=== PATIENT | male | born 1930 | race Caucasian/White ===

== ENCOUNTER → 2017-01-16 | Emergency (ER) | payer OTHER ==
[2017-01-16 06:28] VITALS: TEMP 97.9
--- NOTE | 2017-01-16 06:42 | CPEKG ---
Heart Rate: 82 RR Interval: 732 P-R Interval: 228 QRSD Interval: 114 QT Interval: 436 QTC Interval: 510 P Castella: 43 QRS Castella: -34 T Wave Castella: 97 EKG Severity - ABNORMAL ECG - EKG Impression: SINUS RHYTHM EKG Impression: ATRIAL PREMATURE COMPLEX EKG Impression: SINUS PAUSE/ARREST WITH ATRIAL ESCAPE EKG Impression: FIRST DEGREE AV BLOCK EKG Impression: PROBABLE LEFT ATRIAL ABNORMALITY EKG Impression: LVH WITH IVCD AND SECONDARY REPOL ABNRM Electronically Signed By: Margie Huerta 16-Jan-2017 07:23:47
[2017-01-16 07:04] LABS: % IMMATURE GRANULYOCYTES 0.8 % (0.0-1.1); ABSOLUTE IMMATURE GRANULOCYTES 0.07 10^3/uL (0.00-0.10); ADD DIFF? NO; ADD MORPH? NO; ADD SCAN? NO; ATYPICAL LYMPHOCYTE FLAG 0 (0-99); FRAGMENT RBC FLAG 0 (0-99); HEMATOCRIT 43.8 % (40.0-51.0); HEMOGLOBIN 14.8 g/dL (13.7-17.5); LEFT SHIFT FLG 0 (0-99); LIPEMIA HEMOLYSIS FLAG 90 (0-99); MEAN CELL HEMOGLOBIN 29.5 pg (27.9-34.1); MEAN CELL HEMOGLOBIN CONCENTR. 33.8 g/dL (32.4-36.7); MEAN CELL VOLUME 87.3 fL (81.5-99.8); MEAN PLATELET VOLUME 10.6 fL (8.7-11.7); PLATELET CLUMPS FLAG 0 (0-99); PLATELET COUNT 252 10^3/uL (150-400); RED BLOOD CELL COUNT 5.02 10^6/uL (4.40-6.38); RED CELL DISTRIBUTION WIDTH 14.4 % (11.5-15.2)
--- NOTE | 2017-01-16 07:09 | EDPHY ---
H & P Stated Complaint: c/o difficulty breathing at night and increased nightly urination x 2 night Time Seen by Provider: 01/16/17 06:57 HPI/ROS: CHIEF COMPLAINT: Shortness of breath HISTORY OF PRESENT ILLNESS: This patient is an anticoagulated (Coumadin) 86 year old male arriving with his son complaining of shortness of breath in the evenings onset three days ago. He is visiting from [facility], and arrived 01/08/17, about one week ago. Three nights ago, he woke up feeling short of breath. He felt the urge to take a deep breath, and states he felt "peculiar". He tried lying on his side, and was able to go back to sleep. This happened several times over the night, each episode lasting about 1-2 minutes. Last night he had similar symptoms but more frequently. Sitting up helped to resolve his discomfort. He has noted increased urinary frequency over the last two nights as well, up to 8 times. Two months ago, he was at 9,000ft of elevation and had the same symptoms at night. He has not noted any shortness of breath during the day, taking long walks and being generally active. He denies dizziness or chest pain. He is hypertensive on arrival, and states he has been very tense and worried. REVIEW OF SYSTEMS: A 10 point review of systems was performed and is negative with the exception of the elements mentioned in the history of present illness. - Medical/Surgical History PMH: 1. TIA 2. Diabetes mellitus, type II 3. GI Bleed Hx Asthma: No Hx Chronic Respiratory Disease: No Hx Diabetes: Yes Hx Cardiac Disease: No Hx Renal Disease: No Hx Cirrhosis: No Hx Alcoholism: No Hx HIV/AIDS: No Hx Splenectomy or Spleen Trauma: No Other PMH: tia, dm 2, R shoulder dislocation, gi bleed x 2 - Social History Smoking Status: Former smoker Additional Social History: Visiting from [facility]. Son at bedside. - Physical Exam Exam: General Appearance: Alert, no distress Eyes: Pupils equal and round, no conjunctival pallor or injection ENT, Mouth: Mucous membranes moist Neck: Normal inspection Respiratory: Lungs are clear to auscultation Cardiovascular: Regular rate and rhythm Gastrointestinal: Abdomen is soft and non- tender Neurological: A&O, nonfocal, normal gait Skin: Warm and dry, no rash Extremities: Nontender, no pedal edema Psychiatric: Mood and affect normal Constitutional: Initial Vital Signs Temperature (C) 36.6 C 01/16/17 06:21 Heart Rate 91 01/16/17 06:21 Respiratory Rate 18 01/16/17 06:21 Blood Pressure 209/122 H 01/16/17 06:21 O2 Sat (%) 95 01/16/17 06:21 O2 Delivery Mode Room Air Allergies/Adverse Reactions: No Known Allergies Allergy (Unverified 01/16/17 06:28) Home Medications: Medication Instructions Recorded Coumadin 01/16/17 Medical Decision Making - Diagnostics EKG Interpretation: EKG interpreted by me reveals sinus rhythm, rate 82, with sinus pause and first degree AV block. Interpretation: abnormal EKG Imaging: I viewed and interpreted images myself ED Course/Re-evaluation: Anticoagulated 86 year old male presents with difficulty sleeping due to frequent transient episodes of shortness of breath. He is currently asymptomatic. Physical exam unremarkable. EKG reveals sinus rhythm, sinus pause and first degree AV block; no evidence of ischemia or dysrhythmia. Symptoms possibly secondary to pulmonary edema, though no signs of pulmonary edema on exam. IV established. Plan for labs including CBC, BMP, Troponin, D-Dimer, BNP, UA, and COAG. Plan for chest x-ray. Evaluation is unremarkable. No evidence of acute cardiopulmonary etiology of symptoms. O2 sat 96% on RA at rest and with ambulation. I feel that he is safe /stable for discharge. Discussed with patient and his son; he will try Melatonin to sleep at night and call cardiologists in the morning for further evaluation. The patient is comfortable with this plan. Differential Diagnosis: Differential diagnosis includes though it is not limited to pneumonia, pneumothorax, pulmonary embolism, aortic dissection, pericarditis, acute coronary syndrome. - Data Points Laboratory Results: Laboratory Results 01/16/17 06:50 01/16/17 06:50 Departure - Departure Disposition: Home, Routine, Self-Care Clinical Impression: Dyspnea, paroxysmal nocturnal Condition: Good Instructions: Dyspnea (ED) Additional Instructions: 1. Follow up with cardiology tomorrow for further evaluation of your symptoms. We have referred you to our local [employer] product support consultant. 2. You may try Melatonin, available over the counter, as a sleep aid. 3. Return to the emergency department if you develop chest pain, worsening shortness of breath, fever, vomiting, or other worsening of condition. Referrals: ALONSO,MALE [Other] - As per Instructions Omega Villalta MD [Medical Doctor] - As per Instructions Report Scribed for: Mayte Odonnell Report Scribed by: Libby Hector Date of Report: 01/16/17 Time of Report: 07:00 Physician Review and Approval Statement: 01/16/17 08:26 Portions of this note were transcribed by a medical unit secretary. I personally performed a history, physical exam, medical decision making, and confirmed accuracy of information the transcribed note.
[2017-01-16 07:14] LABS: ANION GAP 13 mEq/L (8-16); CALCIUM 9.7 mg/dL (8.5-10.4); CARBON DIOXIDE 21 mEq/l (22-31); CHLORIDE 106 mEq/L (97-110); CREATININE 0.7 mg/dL (0.7-1.3); GLOMERULAR FILTRATION RATE > 60; GLUCOSE 170 mg/dL (70-100); POTASSIUM 4.1 mEq/L (3.5-5.2); SODIUM 140 mEq/L (134-144)
[2017-01-16 07:26] LABS: TROPONIN I 0.015 ng/mL (0.000-0.034)
[2017-01-16 07:34] LABS: INR 1.68 (0.83-1.16); PROTIME(PATIENT) 19.8 SEC (12.0-15.0)
[2017-01-16 07:36] VITALS: BP 163/82; PULSE 73; RESP 16; O2SAT 96
== END | disposition home or self-care (01) ==
DX: R06.00 Dyspnea, unspecified (principal); E11.9 Type 2 diabetes mellitus without complications; Z87.891 Personal history of nicotine dependence